=== PATIENT | male | born 2000 | race Two or more races ===

== ENCOUNTER 2023-12-26 16:25 | Emergency (ER) | payer BC ==
[~2023-12-26] VITALS: Ht 185.4 cm; Wt 58.0 kg
[2023-12-26 16:31] VITALS: O2SAT 98
[2023-12-26] MEDS: TETANUS, DIPHTHERIA, PERTUSSIS VAC/PF 0.5ML (>10YR OLD) IM ONE (19:49)
[2023-12-26 20:34] VITALS: BP 108/69; PULSE 98; RESP 18; TEMP 98.2
== END 2023-12-26 20:59 | disposition home or self-care (01) ==
LOC: ER 16:25
DX: S01.511A Laceration without foreign body of lip, initial encounter (principal); W64.XXXA Exposure to other animate mechanical forces, initial encounter; Y93.89 Activity, other specified; Y92.89 Other specified places as the place of occurrence of the external cause; Y99.8 Other external cause status
CPT/HCPCS: 90471; 90715; 99283